=== PATIENT | male | born 1990 | race African-American/Black ===

== ENCOUNTER 2025-05-22 22:48 | Observation (INO) | payer MEDICAID ==
[~2025-05-22] VITALS: Ht 177.8 cm; Wt 62.7 kg
[2025-05-22] MEDS ORDERED: ALBUTEROL SULFATE 0.5% 2.5 MG/0.5 ML VIAL INH ONE (23:00)
[2025-05-22] MEDS ORDERED: BUDESONIDE 0.5 MG/2 ML VIAL INH ONE (23:00)
[2025-05-22] MEDS ORDERED: MAGNESIUM SULFATE 2 GM/50 ML BAG IV ONE (23:45)
[2025-05-22 23:55] LABS: BASOPHILS 0.9 % (0.2-1.2); EOSINOPHILS 6.4 % (0.8-7.0); LYMPHOCYTES 29.4 % (21.8-53.1); MCH 31.1 PG (25.7-32.2); MCHC 34.5 g/dL (32.3-36.5); MCV 90.1 fL (79.0-92.2); MONOCYTES 8.9 % (5.3-12.2); NEUTROPHILS 54.2 % (34.0-67.9); RBC 5.53 M/uL (4.63-6.08)
[2025-05-23] VITALS (14 sets, daily range): BP systolic 111–143; BP diastolic 67–85
[2025-05-23 00:05] LABS: ALT (SGPT) 33.0 U/L (14-59); AST (SGOT) 31.0 U/L (15-37); GLOMERULAR FILTRATION RATE,EST 117.0 mL/min (>60); PROTEIN, TOTAL 8.6 g/dL (6.4-8.2); UREA NITROGEN 13.0 mg/dL (7-18)
[2025-05-23] MEDS ORDERED: ALBUTEROL SULFATE 0.083% 3 ML VIAL INH PRN ×2 (01:00→12:00)
[2025-05-23] MEDS ORDERED: ACETAMINOPHEN 325 MG TAB PO PRN ×2 (01:00→11:30)
[2025-05-23] MEDS ORDERED: AZITHROMYCIN 500 MG in DEXTROSE 5% 250 ML IV ONE (01:00)
[2025-05-23 01:06] LABS: INFLUENZA B NAA NEGATIVE (NEGATIVE); RESPIRATORY SYNCYTIAL VIR NAA NEGATIVE (NEGATIVE)
--- NOTE | 2025-05-23 02:35 | NUR ---
PATIENT ARRIVES TO UNIT VIA WHEELCHAIR W/ THIS RN AND LISA LAMAR. PATIENT AMBULATES FROM WHEELCHAIR TO BED. PATIENT ON 5 L NC; TOLERATING WELL AT THIS TIME. SPO2 94%. PATIENT DENIES INCREASED SOB W/ AMBULATION. THIS RN AND BRIANDA RN REMAIN IN ROOM.
--- NOTE | 2025-05-23 03:15 | NUR ---
PATIENT ASSESSMENT COMPLETE. PATIENT ALERT AND ORIENTED. HR 80'S-90'S, NSR. PATIENT ON 5 L NC. SPO2 95%. EXPIRATORY WHEEZES NOTED IN THE BILATERAL UPPER LOBES, AND DIMINISHED IN THE BILATERAL LOWER LOBES. PATIENT DENIES INCREASED SOB WHILE RESTING IN BED. RR EVEN AND UNLABORED. PATIENT ABLE TO FORM COMPLETE SENTENCES AND CARRY OUT CONVERSATION W/O DIFFICULTY. CMS INTACT. RADIAL PULSES STRONG. PATIENT PROVIDED SNACK AND PO FLUIDS. VITAL SIGNS STABLE. L. AC 18G IV SITE INTACT AND WNL. NO EVIDENCE OF ACUTE DISTRESS NOTED. VITAL SIGNS STABLE. THIS RN AND BRIANDA RN REMAIN IN ROOM.
[2025-05-23] MEDS ORDERED: VENTOLIN HFA18 GM INH (03:17)
--- NOTE | 2025-05-23 03:41 | NUR ---
PATIENT ASSISTED UP TO THE BATHROOM. PATIENT SBA FOR LINE AND TUBE MANAGEMENT. PATIENT VOIDS INDEPENDENTLY IN BATHROOM. PATIENT VOIDS CLEAR YELLOW URINE. PATIENT BACK TO BED. PATIENT DENIES INCREASED SOB W/ ACTIVITY. PATIENT SPO2 93% ON 4 L NC. NO EVIDENCE OF ACUTE DISTRESS NOTED. PATIENT UPDATED ON POC. CALL LIGHT IN REACH.
[2025-05-23] MEDS ORDERED: ALBUTEROL/IPRATROPIUM 3 ML NEB INH SCH ×2 (04:00→12:00)
--- NOTE | 2025-05-23 06:29 | NUR ---
MEDICATIONS ADMINISTERED PER EMAR. PATIENT DENIES NEEDS AT THIS TIME. SPO2 92% ON 2L NC. RR EVEN AND UNLABORED. NO EVIDENCE OF ACUTE DISTRESS NOTED. CALL LIGHT IN REACH.
--- NOTE | 2025-05-23 06:47 | NUR ---
RAND TACKER ALARMING RR OF 38. THIS RN IN ROOM. RR COUNTED MANUALLY. RR 18 UPON THIS LABELLING MACHINE OPERATOR. RR EVEN AND UNLABORED. PATIENT SPO2 90% ON 2 L NC. OXYGEN TITRATED TO 2.5 L. SPO2 NOW 92%. NO EVIDENCE OF ACUET DISTRESS NOTED. PATIENT RESTING IN BED W/ EYES CLOSED. CALL LIGHT IN REACH
[2025-05-23] MEDS ORDERED: BUDESONIDE 0.5 MG/2 ML VIAL INH SCH ×2 (08:00→20:00)
[2025-05-23 08:35] LABS: BASOPHILS 0 % (0.2-1.2); EOSINOPHILS 0 % (0.8-7.0); LYMPHOCYTES 4.7 % (21.8-53.1); MCH 31.4 PG (25.7-32.2); MCHC 34.4 g/dL (32.3-36.5); MCV 91.4 fL (79.0-92.2); MONOCYTES 1.1 % (5.3-12.2); NEUTROPHILS 94.0 % (34.0-67.9); RBC 4.30 M/uL (4.63-6.08)
[2025-05-23 08:49] LABS: ALT (SGPT) 26.0 U/L (14-59); AST (SGOT) 27.0 U/L (15-37); GLOMERULAR FILTRATION RATE,EST 117.0 mL/min (>60); PHOSPHORUS, INORGANIC 1.3 mg/dL (2.5-4.9); PROTEIN, TOTAL 7.0 g/dL (6.4-8.2); UREA NITROGEN 10.0 mg/dL (7-18)
[2025-05-23] MEDS ORDERED: POTASSIUM CHLORIDE 10 MEQ TABCR PO ONE (09:00)
[2025-05-23] MEDS ORDERED: AZITHROMYCIN 500 MG in DEXTROSE 5% 250 ML IV SCH (09:00)
--- NOTE | 2025-05-23 09:22 | NUR ---
PATIENT GIVEN AM MEDICATION PER MAR, IV ANTIBIOTIC INFUSING. PATIENT EDUCATED ABOUT LINE MANAGEMENT. PATIENT COMMUNICATED UNDERSTANDING TO CALL IF HE HAS TO USE THE RESTROOM IN THE NEXT HOUR. PATIENT ASKS APPROPRIATE QUESTIONS AND IS ORIENTED TIMES FOUR. PATIENT DENIES FURTHER NEEDS AT THIS TIME. O2 IS AT 2L NC, PATIENT DENIES SOB, WHEEZES HEARD WITH EXHALE. BREAKFAST TRAY AT BEDSIDE, CALL LIGHT AND PERSONAL BELONGINGS ARE WITHIN REACH.
--- NOTE | 2025-05-23 10:38 | NUR ---
DR. MORALEZ IN WITH PATIENT DISCUSSING PLAN OF CARE. PATIENT ANSWERING QUESTIONS APPROPRIATELY. DISCUSSING HISTORY AND HEALTHCARE PROVIDERS. REPORTS SOB WITH ACTIVITY FOR APPROXIMATELY TWO DAYS. PATIENT ON 1L O2 O2 SATURATION IN 90S. ENDORSES SMOKING MARIJUANA DAILY. PATIENT DENIES FURTHER NEEDS.
[2025-05-23] MEDS ORDERED: SOD PHOS MONO/SOD PHOS DIBAS 1 EACH PACKET PO ONE (11:30)
--- NOTE | 2025-05-23 11:32 | NUR ---
ALERT AND ORIENTED IN BED. LIVES IN [facility]. HAS NO DME EQUIPMENT. NO LONGER HAS A NEBULIZER DUE TO LONG TIMEFRAME WITHOUT A NEED FOR IT. STATES HE DRIVES. HAS NO FINANCIAL CONCERNS. PLANS TO DC TO HOME WHEN MEDICALLY READY. HAS NO PCP, STATES A PCP IN [place] WOULD BE IDEAL BECAUSE HE LIVES IN [place].
[2025-05-23] MEDS ORDERED: PHARMACY RENAL DOSE ADJUSTMENT 1 DOSE MISC PO SCH (12:00)
--- NOTE | 2025-05-23 12:50 | NUR ---
SCHEDULED FOLLOW-UP APPOINTMENT WITH DR. LYDIA MARTINEZ AT [facility] IN [place] FOR 05/29/25 AT 1000. APPOINTMENT IN DC INSTRUCTIONS. CLINICALS AND FACESHEET FAXED TO CLINIC.
--- NOTE | 2025-05-23 12:51 | NUR ---
UR CLINICAL REVIEW: [facility]-PER [facility] REVIEW MEETS OBS FOR ASTHMA WITH NEED FOR RT TREATMENT AND SUPPLEMENTAL O2. [facility] OBS 05/22/25 @ 2253 ORDER MATCHES REG NO AUTH REQUIRED FOR OBS PER [place] GUIDELINES DISCHARGE TO HOME [place] 05/24/25 05/24/25
--- NOTE | 2025-05-23 13:17 | NUR ---
MED REC COMPLETE
--- NOTE | 2025-05-23 14:51 | NUR ---
ORDER FOR NEBULIZER FROM DR. MORALEZ. ORDER, FACESHEET AND H&P FAXED TO [facility] AT [phone]. ADDRESS FOR DME GIVEN TO PATIENT AND SIGNIFICANT OTHER. ALSO INFORMED PATIENT FOLLOW-UP APPOINTMENT HAS BEEN MADE FOR NEXT WEEK AND APPOINTMENT IS ON HIS DC INSTRUCTIONS. NO FURTHER CM NEEDS AT THIS TIME.
--- NOTE | 2025-05-23 17:20 | NUR ---
RECEIVED REPORT FROM LISA LIMON. PT TRANSFERED TO MED SURG RM 122, VSS, REPORTS NO SOB/PAIN/NAUSEA, NO OTHER NEEDS AT THIS TIME. CALL LIGHT IN REACH, FAMILY AT BEDSIDE.
--- NOTE | 2025-05-23 19:20 | NUR ---
REPORT RECEIVED FROM VICK RN AND LISA BUCKLEY. PT GETTING READY FOR SHOWER, INDEPENDENT IN THE ROOM. RADHA FIELDS IN THE ROOM DURING ROUNDS. RESPIRATIONS EVEN AND UNLABORED. DENIES NEEDS AT THIS TIME.
--- NOTE | 2025-05-23 20:56 | NUR ---
PT LAYING IN BED. VITAL SIGNS TAKEN AND RECORDED. INPUT AND OUTPUT RECORDED. PT DENIES NEEDS AT THIS TIME.
--- NOTE | 2025-05-23 22:47 | NUR ---
PT LAYING IN BED. RESPIRATIONS EVEN AND UNLABORED. SATS BET 90-91% ON 1L O2/NC. NO APPARENT NEEDS NOTED AT THIS TIME. CALL LIGHT AND PERSONAL BELONGINGS WITHIN REACH.
--- NOTE | 2025-05-24 00:18 | NUR ---
PT LAYING IN BED AWAKE. RESPIRATIONS EVEN AND UNLABORED. SPO2 RANGES 90-91% ON 1L O2/NC. DENIES NEEDS AT THE MOMENT. CALL LIGHT AND PERSONAL BELONGINGS WITHIN REACH.
--- NOTE | 2025-05-24 01:53 | NUR ---
PT LAYING IN BED AWAKE. RESPIRATIONS EVEN AND UNLABORED. SATS RANGING FROM 90-92% ON 1L O2. REPORTED BEING ABLE TO COUGH OUT MORE MUCOUS AFTER USING THE ACAPELA. DENIES NEEDS AT THE MOMENT. CALL LIGHT AND PERSONAL BELONGINGS WITHIN REACH.
--- NOTE | 2025-05-24 04:45 | NUR ---
PT LAYING IN BED, RESPIRATIONS EVEN AND UNLABORED. NO APPARENT NEEDS NOTED AT THIS TIME. CALL LIGHT AND PERSONAL BELONGINGS IN REACH.
[2025-05-24 05:20] VITALS: BP 124/77
[2025-05-24 05:26] VITALS: BP 124/77
[2025-05-24 05:42] LABS: BASOPHILS 0.1 % (0.2-1.2); EOSINOPHILS 0 % (0.8-7.0); LYMPHOCYTES 11.2 % (21.8-53.1); MCH 31.0 PG (25.7-32.2); MCHC 34.4 g/dL (32.3-36.5); MCV 90.0 fL (79.0-92.2); MONOCYTES 6.8 % (5.3-12.2); NEUTROPHILS 81.6 % (34.0-67.9); RBC 5.42 M/uL (4.63-6.08)
--- NOTE | 2025-05-24 05:43 | NUR ---
PT LAYING IN BED. VITAL SIGNS TAKEN AND RECORDED. PT HAS NOT USED THE RESTROOM OVERNIGHT AND WHEN THIS RN ASKED PT STATED HE DID NOT REALLY DRINK OVER NIGHT AND HE DOESN'T REALLY FEEL THAT HE NEEDS TO GO. DENIES NEEDS AT THIS TIME. CALL LIGHT AND PERSONAL BELONGINGS IN REACH.
[2025-05-24 06:02] LABS: ALT (SGPT) 27.0 U/L (14-59); AST (SGOT) 18.0 U/L (15-37); GLOMERULAR FILTRATION RATE,EST 117.0 mL/min (>60); PHOSPHORUS, INORGANIC 5.4 mg/dL (2.5-4.9); PROTEIN, TOTAL 8.1 g/dL (6.4-8.2); UREA NITROGEN 13.0 mg/dL (7-18)
--- NOTE | 2025-05-24 07:30 | NUR ---
RECEIVED REPORT FROM LISA BYRNES. PT LAYING IN BED REPORTS NO NEEDS, CALL LIGHT IN REACH, WHITEBOARD UPDATED.
[2025-05-24] MEDS ORDERED: AZITHROMYCIN 250 MG TAB PO SCH (09:00)
[2025-05-24] MEDS ORDERED: predniSONE 20 MG TAB PO SCH (09:00)
--- NOTE | 2025-05-24 09:33 | NUR ---
PATIENT SITTING UP IN BED WATCHING TV AND USING CORNET WITH RT ANTONIO AT BEDSIDE. RECLINER PROVIDED TO PATIENT SO HE CAN SIT UP OUT OF BED. PATIENT WITHOUT FURTHER NEEDS FROM THIS RN. CALL LIGHT AND PERSONAL BELONGINGS ARE WITHIN REACH.
[2025-05-24 10:13] VITALS: BP 137/74
[2025-05-24] MEDS ORDERED: ZITHROMAX250 MG PO (10:19)
[2025-05-24] MEDS ORDERED: VENTOLIN HFA18 GM INH (10:19)
[2025-05-24] MEDS ORDERED: PREDNISONE20 MG PO (10:20)
[2025-05-24] MEDS ORDERED: IPRAT-ALBUT 0.5-3 ML INH (10:28)
--- NOTE | 2025-05-24 10:44 | NUR ---
GENERAL ASSEMBLER AT BEDSIDE REMOVING IV. PT GETTING DRESSED FOR DISCHARGE. UPDATED PT THAT WE WOULD BE GETTIGN DISCHARGE PACKET READY. NO NEEDS AT THIS ITME, CALL LIGHT IN REACH.
--- NOTE | 2025-05-24 10:46 | NUR ---
PATIENT IN CHAIR AT THIS TIME. FUEL OIL CLERK DISCONTINUED IV PER RN KYLEE REQUESTED. CALL LIGHT WITHIN REACH, NO FRUTHER NEEDS.
[2025-05-24 10:47] VITALS: BP 137/74
--- NOTE | 2025-05-24 10:52 | NUR ---
UR CLINICAL REVIEW: [facility] REVIEW MEETS OBS CRITERIA FOR DC [facility] OBS 05/22/25 @ 2253 ORDER MATCHES REG NO AUTH REQUIRED FOR OBS PER [place] GUIDELINES DC TO HOME TODAY
--- NOTE | 2025-05-24 14:33 | NUR ---
PATIENT CALLS STATING [facility] DOES NOT HAVE ORDERS. CALLED [facility] AND THEY STATE THEY HAVE NO INFORMATION REGARDING PATIENT. REFAXED ORDERS, FACESHEER AND CLINICALS TO [facility] AT [phone] PER COMPANY REQUEST.
== END 2025-05-24 11:00 | disposition home or self-care (01) ==
LOC: ED 22:48 → CCU 22:53 → MS 05-23 16:01
PROVIDERS: Family Medicine; ADMIT Family Medicine; ATTEND Family Medicine
DX: J45.901 Unspecified asthma with (acute) exacerbation (principal); J96.00 Acute respiratory failure, unspecified whether with hypoxia or hypercapnia; E87.6 Hypokalemia; E83.39 Other disorders of phosphorus metabolism; Z79.899 Other long term (current) drug therapy
CPT/HCPCS: 36415; 71045; 80053; 82803; 83735; 84100; 85025; 85379; 87502; 94640; 94644; 94667; 94668; 94762; 96365; 96374; 96375; 96376; 99285-25; A9270; G0378; J0456; J2919; J3475; J7060; J7512; U0002